=== PATIENT | male | born 1990 | race Caucasian/White ===

== ENCOUNTER 2016-07-02 19:15 | Emergency (ER) | payer SELFPAY ==
[~2016-07-02] VITALS: Ht 187.9 cm; Wt 92.5 kg
[~2016-07-02 19:15] MED LIST: BACTRIM 400 MG-1 TAB PO; BACTRIM DS 8001 TA1 PO; BENADRYL25 M2 PO; CATAFLAM50 MG PO; CLARITIN10 MG PO; CLEOCIN HCL150 MG PO; HYDROCODONE BIT1 T11 PO; KEFLEX500 MG PO; MOTRIN800 MG PO; PREDNISONE10 MG PO; TYLENOL500 MG PO; VICODIN 500 MG-1 TAB PO; VICODIN ES 7501 TA1 PO; ZITHROMAX Z PA250 MG PO
[2016-07-02 19:30] VITALS: BP 114/73
[2016-07-02] MEDS ORDERED: BACTRIM DS 8001 TA1 PO (20:31)
== END 2016-07-02 20:36 | disposition home or self-care (01) ==
LOC: ED 19:15
DX: L02.212 Cutaneous abscess of back [any part, except buttock and flank] (principal); F17.200 Nicotine dependence, unspecified, uncomplicated; Z88.0 Allergy status to penicillin; Z88.1 Allergy status to other antibiotic agents

== ENCOUNTER 2018-12-07 13:15 | Emergency (ER) | payer SELFPAY ==
[~2018-12-07] VITALS: Ht 187.9 cm; Wt 97.5 kg
[2018-12-07 13:19] VITALS: BP 115/70
== END 2018-12-07 14:40 | disposition home or self-care (01) ==
LOC: ED 13:15
DX: S60.221A Contusion of right hand, initial encounter (principal); Z88.0 Allergy status to penicillin; Z88.1 Allergy status to other antibiotic agents; W22.8XXA Striking against or struck by other objects, initial encounter; Y93.89 Activity, other specified; Y92.89 Other specified places as the place of occurrence of the external cause; Y99.8 Other external cause status

== ENCOUNTER → 2021-03-19 | Outpatient (CLI) | payer OTHER | END | disposition home or self-care (01) | LOC: COVID19 15:06 | PROVIDERS: ATTEND Podiatrist Foot & Ankle Surgery | DX: Z11.52 Encounter for screening for COVID-19 (principal) ==

== ENCOUNTER 2021-06-17 09:16 | Emergency (ER) | payer OTHER ==
[~2021-06-17] VITALS: Wt 104.3 kg
[2021-06-17 09:19] VITALS: BP 115/74
== END 2021-06-17 12:48 | disposition home or self-care (01) ==
LOC: ED 09:16
DX: S20.229A Contusion of unspecified back wall of thorax, initial encounter (principal); S30.0XXA Contusion of lower back and pelvis, initial encounter; Z88.0 Allergy status to penicillin; Z88.1 Allergy status to other antibiotic agents; V69.9XXA Occupant (driver) (passenger) of heavy transport vehicle injured in unspecified traffic accident, initial encounter; Y93.89 Activity, other specified; Y92.89 Other specified places as the place of occurrence of the external cause; Y99.8 Other external cause status

== ENCOUNTER 2024-07-25 08:07 | Emergency (ER) | payer MEDICAID ==
[~2024-07-25] VITALS: Ht 187.9 cm; Wt 95.3 kg
[2024-07-25 08:13] VITALS: BP 118/61
[2024-07-25] MEDS ORDERED: IBUPROFEN 600 MG TAB PO ONE (08:30)
[2024-07-25] MEDS ORDERED: ACETAMINOPHEN 325 MG TAB PO ONE (08:30)
[2024-07-25] MEDS ORDERED: AZITHROMYCIN 250 MG TAB PO ONE ×2 (08:30)
[2024-07-25] MEDS ORDERED: ZITHROMAX250 MG PO (08:41)
[2024-07-25] MEDS ORDERED: IBU600 M1 PO (08:41)
== END 2024-07-25 08:56 | disposition home or self-care (01) ==
LOC: ED 08:07
DX: J03.90 Acute tonsillitis, unspecified (principal); Z88.0 Allergy status to penicillin; Z88.1 Allergy status to other antibiotic agents; Z90.49 Acquired absence of other specified parts of digestive tract